=== PATIENT | female | born 1970 | race Caucasian/White ===

== ENCOUNTER 2017-02-12 17:04 | Emergency (ER) | payer BC, OTHER ==
--- NOTE | 2017-02-12 17:15 | UC ---
Ear Complaint HPI - HPI Summary HPI Summary: 46 year old presents with left ear pain. - History of Current Complaint Chief Complaint: UCEar Stated Complaint: LEFT EAR PAIN Time Seen by Provider: 02/12/17 17:13 Hx Last Menstrual Period: 10/18/15 has mirena - Allergies/Home Medications Allergies/Adverse Reactions: Allergies Allergy/AdvReac Type Severity Reaction Status Date / Time No Known Allergies Allergy Verified 02/12/17 17:11 Home Medications: Home Medications Fingolimod HCl [Gilenya] 0.5 mg PO DAILY 02/12/17 [History Confirmed 02/12/17] PMH/Surg Hx/FS Hx/Imm Hx - Surgical History Surgical History: Yes Surgery Procedure, Year, and Place: tonsillectomy - Family History Known Family History: Positive: None - Social History Alcohol Use: None Substance Use Type: None Smoking Status (MU): Never Smoked Tobacco - Immunization History Most Recent Influenza Vaccination: none Review of Systems Constitutional: Negative Skin: Negative Eyes: Negative ENT: Ear Ache Respiratory: Negative Cardiovascular: Negative Gastrointestinal: Negative Genitourinary: Negative Motor: Negative Neurovascular: Negative Musculoskeletal: Negative Neurological: Negative Psychological: Negative All Other Systems Reviewed And Are Negative: Yes Physical Exam Triage Information Reviewed: Yes Eye Exam: Normal ENT: Positive: Other: - left external ear erythema Dental Exam: Normal Neck exam: Normal Neck: Positive: 1 Respiratory Exam: Normal Cardiovascular Exam: Normal Abdominal Exam: Normal Musculoskeletal Exam: Normal Neurological Exam: Normal Psychological Exam: Normal Skin Exam: Normal Ear Complaint Course/Dx - Differential Dx/Diagnosis Provider Diagnoses: left ear otitis externa Discharge - Discharge Plan Condition: Stable Disposition: HOME Prescriptions: Neomyc/Polym/HC 1% OTIC SUSP* [Cortisporin Otic Susp 1%*] 4 drop LEFT EAR QID # 1 btl Patient Education Materials: Earache (ED), Otitis Externa (ED) Referrals: Chidi Hugo DO [Primary Care Provider] -
[2017-02-12 17:16] VITALS: BP 120/84
== END 2017-02-12 17:28 | disposition home or self-care (01) ==
LOC: UCCORT 17:04
DX: H60.92 Unspecified otitis externa, left ear (principal)
CPT/HCPCS: 99212; G0463

== ENCOUNTER 2017-02-15 09:07 | Emergency (ER) | payer BC ==
[2017-02-15 09:16] VITALS: BP 120/85
--- NOTE | 2017-02-15 09:20 | UC ---
Ear Complaint HPI - HPI Summary HPI Summary: 46 YEAR OLD FEMALE PRESENTS AGAIN FOR LEFT EAR PAIN. - History of Current Complaint Stated Complaint: LEFT EAR COMPLAINT Time Seen by Provider: 02/15/17 09:14 Hx Last Menstrual Period: 10/18/15 has mirena - Allergies/Home Medications Allergies/Adverse Reactions: Allergies Allergy/AdvReac Type Severity Reaction Status Date / Time No Known Allergies Allergy Verified 02/15/17 09:16 PMH/Surg Hx/FS Hx/Imm Hx - Surgical History Surgical History: Yes Surgery Procedure, Year, and Place: tonsillectomy - Family History Known Family History: Positive: None - Social History Alcohol Use: None Substance Use Type: None Smoking Status (MU): Never Smoked Tobacco - Immunization History Most Recent Influenza Vaccination: none Most Recent Tetanus Shot: unk Most Recent Pneumonia Vaccination: none Review of Systems Constitutional: Negative Skin: Negative Eyes: Negative ENT: Ear Ache Respiratory: Negative Cardiovascular: Negative Gastrointestinal: Negative Genitourinary: Negative Motor: Negative Neurovascular: Negative Musculoskeletal: Negative Neurological: Negative Psychological: Negative All Other Systems Reviewed And Are Negative: Yes Physical Exam Triage Information Reviewed: Yes Eye Exam: Normal ENT: Positive: Other: - LEFT EAR CERUMEN IMPACTION LEFT OTITIS EXTERNA Dental Exam: Normal Neck exam: Normal Neck: Positive: 1 Respiratory Exam: Normal Cardiovascular Exam: Normal Abdominal Exam: Normal Musculoskeletal Exam: Normal Neurological Exam: Normal Psychological Exam: Normal Skin Exam: Normal Ear Complaint Course/Dx - Differential Dx/Diagnosis Provider Diagnoses: LEFT EAR CERUMEN IMPACTION. LEFT EAR OTITIS EXTERNA Discharge - Discharge Plan Condition: Stable Disposition: HOME Prescriptions: Amoxicillin/Clavulanate TAB* [Augmentin TAB 875*] 875 mg PO BID #20 tab Patient Education Materials: Earache (ED), Cerumen Impaction (ED) Referrals: Chidi Hugo DO [Primary Care Provider] -
== END 2017-02-15 09:32 | disposition home or self-care (01) ==
LOC: UCCORT 09:07
DX: H61.22 Impacted cerumen, left ear (principal); H60.92 Unspecified otitis externa, left ear
CPT/HCPCS: 99213; G0463

== ENCOUNTER 2017-09-15 19:39 | Emergency (ER) | payer BC ==
[2017-09-15 21:01] VITALS: BP 133/79
--- NOTE | 2017-09-15 22:11 | UC ---
Throat Pain/Nasal Edgar HPI - HPI Summary HPI Summary: PT IS C/O PAIN IN R EAR WITH CRACKLING FOR 2 DAYS. SHE DENIES FEVER, URI OR DISCHARGE. SHE HAD AN EAR INFECTION ONCE THAT FELT THE SAME. - History of Current Complaint Chief Complaint: UCEar Stated Complaint: EAR PAIN Time Seen by Provider: 09/15/17 21:56 Hx Obtained From: Patient Hx Last Menstrual Period: 09/12/17 ?: No Onset/Duration: Gradual Onset Pain Intensity: 2 Associated Signs & Symptoms: Positive: Negative - Epiglottits Risk Factors Epiglottis Risk Factors: Negative - Allergies/Home Medications Allergies/Adverse Reactions: Allergies Allergy/AdvReac Type Severity Reaction Status Date / Time No Known Allergies Allergy Verified 09/15/17 21:01 Home Medications: Home Medications Ibuprofen 600 mg PO ONCE 09/15/17 [History Confirmed 09/15/17] Multivit with Calcium,Iron,Min [Multiple Vitamins For Women] 1 each PO DAILY 05/23 [History Confirmed 09/15/17] PMH/Surg Hx/FS Hx/Imm Hx Previously Healthy: No - MS and per triage note - Surgical History Surgical History: Yes Surgery Procedure, Year, and Place: tonsillectomy - Family History Known Family History: Positive: None - Social History Lives: With Family Alcohol Use: None Substance Use Type: None Smoking Status (MU): Never Smoked Tobacco - Immunization History Most Recent Influenza Vaccination: none Most Recent Tetanus Shot: unk Most Recent Pneumonia Vaccination: none Review of Systems Constitutional: Negative Skin: Negative Eyes: Negative ENT: Ear Ache Respiratory: Negative Cardiovascular: Negative Gastrointestinal: Negative Genitourinary: Negative Neurological: Other - chronic neuromuscular deficits from MS but no acute changes All Other Systems Reviewed And Are Negative: Yes Physical Exam Triage Information Reviewed: Yes Appearance: Well-Appearing Vital Signs: Initial Vital Signs Temp 98.2 F 09/15/17 20:56 Pulse 66 09/15/17 20:56 Resp 16 09/15/17 20:56 BP 133/79 09/15/17 20:56 Pulse Ox 100 09/15/17 20:56 Vital Signs Reviewed: Yes Eye Exam: Normal ENT: Positive: Hearing grossly normal, Pharynx normal, TMs normal, Other - Pain with R auricle tug and pressure to tragus. Canal with scant white flakes. No mastoid tenderness.. Negative: Nasal congestion, Nasal drainage Neck: Positive: Supple, Nontender, No Lymphadenopathy Respiratory: Positive: Chest non-tender, Lungs clear, Normal breath sounds Cardiovascular: Positive: RRR, No Murmur Abdomen Description: Positive: Nontender, No Organomegaly, Soft Bowel Sounds: Positive: Present Neurological: Positive: Alert Psychological Exam: Normal Skin Exam: Normal Throat Pain/Nasal Course/Dx - Course Course Of Treatment: no matoiditis or OM. Will tx for OE and refer to ENT since this is a recurrent issue and pt c/o crackles in R ear. - Differential Dx/Diagnosis Provider Diagnoses: R otitis externa Discharge - Discharge Plan Condition: Stable Disposition: HOME Discharge Disposition Comment: PLACE 4 DROPS OF CORTISPORIN ANTIBIOTIC IN r EAR THREE TIMES DAILY FOR 7 DA Patient Education Materials: Otitis Externa (ED) Referrals: Robert Alvares MD [Medical Doctor] - 5 Days
[2017-09-15] MEDS ORDERED: Neomyc/Polym/HC 1% OTIC SUSP* **OTIC ONE (22:14)
[2017-09-16] MEDS ORDERED: Neomyc/Polym/HC 1% OTIC SUSP* **OTIC RIGHT EAR SCH (09:00)
== END 2017-09-15 22:20 | disposition home or self-care (01) ==
LOC: UCCORT 19:39
DX: H60.91 Unspecified otitis externa, right ear (principal)
CPT/HCPCS: 99212; A9270-GY; G0463

== ENCOUNTER 2019-07-29 08:24 | Emergency (ER) | payer BC ==
--- OUTSIDE RECORDS SUMMARY | 2019-07-29 08:32 | XMS REPORT | Summary of Care ---
:1970 Author Organization [facility] Address [address] [place] [address] Care Team Providers Name Role Phone Pcp, No Primary Care Provider Unavailable Reason for Visit Reason Comments Follow-up Encounter Details Date Type Department Care Team Description 06/05/2019 Office Visit [facility] Neurology at Levi Gregory, Multiple sclerosis (Primary Dx); [facility] MS (multiple sclerosis) Center [address], [address] [id number] [place] [address] Allergies No Known Allergiesdocumented as of this encounter (statuses as of 06/06/2019) Medications Medication Sig Dispensed Refills Start End Date Status Date Cholecalciferol Take 5,000 0 Active (VITAMIN D PO) Units by mouth daily Multiple Vitamin Take 1 tablet 0 Active (MULTIVITAMIN) by mouth tablet daily. ibuprofen Take 600 mg by 0 Active (ADVIL,MOTRIN) 200 mouth every 6 MG tablet (six) hours as needed for Pain. Misc. Devices Use as directed. Wheelchair 1 each 0 Active (DURABLE MEDICAL Reason: gait disorder from multiple sclerosis 8 EQUIPMENT SEE SIG) MISCIndications: Multiple sclerosis Fingolimod HCl Take 1 capsule 90 capsule 1 07/06/20 Active (GILENYA) 0.5 MG by mouth daily 9 19 CAPSIndications: Multiple sclerosis gabapentin Take 300 mg by 0 Active (NEURONTIN) 300 MG mouth Three capsule times daily dalfampridine Take 1 tablet 180 tablet 3 06/04/20 Active (AMPYRA) 10 MG by mouth every 9 20 extended release 12 (twelve) tabletIndications: hours MS (multiple sclerosis) dalfampridine Take 1 tablet 180 tablet 3 06/05/20 Discontinued (AMPYRA) 10 MG by mouth every 9 19 (Reorder) extended release 12 (twelve) tabletIndications: hours MS (multiple sclerosis) documented as of this encounter (statuses as of 06/06/2019) Active Problems Problem Noted Date Advanced maternal age in 11/11/2012 Multiple sclerosis 10/17/2012 Overview: Relapsing remitting MS dx'd 03/16 documented as of this encounter (statuses as of 06/06/2019) Social History Tobacco Use Types Packs/Day Years Used Date Never Smoker 0 Smokeless Tobacco: Never Used Alcohol Use Drinks/Week oz/Week Comments No Sex Assigned at Date Recorded Not on file Job Start Date Occupation Industry Not on file Not on file Not on file Travel History Travel Start Travel End No recent travel history available. documented as of this encounter Last Filed Vital Signs Vital Sign Reading Time Taken Comments Blood Pressure 118/85 06/05/2019 9:50 AM EDT Pulse 76 06/05/2019 9:50 AM EDT Temperature - - Respiratory Rate - - Oxygen Saturation - - Inhaled Oxygen Concentration - - Weight 71.7 kg (158 lb) 06/05/2019 9:50 AM EDT Height 172.7 cm (5' 8") 06/05/2019 9:50 AM EDT Body Mass Index 24.02 06/05/2019 9:50 AM EDT documented in this encounter Progress Notes Levi Gregory MD - 06/05/2019 10:00 AM EDT Neuro[facility]Ophthalmology Clinic Interim History: Danyelle Ashby is a 49 y.o. female who returned for routine neuro-ophthalmic follow up appointment of relapsing - remitting multiple sclerosis, accompanied by cousin. Since the last visit on 11/19/2018, she has been medically well and not been hospitalized. The labs obtained at the last visit were most notable for JCV 0.88 , vitamin D 60, lymphocyte 0.60 and WBC 6.2.The last MRI of the Brain performed on 04/22/19 showed no new lesions or abnormal enhancement. I have reviewed it and agree with the report. She has tolerated Gilenya and Ampyra very well without significant side effects. She has remained adherent to therapy. She reports no new symptoms . At the last visit, she had noted that Ampyra generic helped her gait, but clearly the brand name was better, although she couldn't afford the copayment. She was going to inquire for patient assistance program but that wasn't helpful. She now feels that Ampyra generic is helping better. She recently hurt her back, so she has not been able to use the stationary bike for exercise. She developed right ear ache. Urinary (dificulty emptying) and bowel movement (constipation)difficulties have remained stable. She continues using a cane and walker for long distances for support. She was in [place] recently, and did very well despite high temperatures. She required a scooter. Review of Systems: Besides the above mentioned symptoms, a complete review of systems was obtained and filed in the chart. All other systems were otherwise negative. Medication List: Outpatient Medications Marked as Taking for the 06/05/19 encounter (Office Visit ) with Levi Gregory MD Medication Sig Dispense Refill Extra Info Cholecalciferol (VITAMIN D PO) Take 5,000 Units by mouth daily 1 dalfampridine (AMPYRA) 10 MG extended release tablet Take 1 tablet by mouth every 12 (twelve)hours 180 tablet 3 1 Fingolimod HCl (GILENYA) 0.5 MG CAPS Take 1 capsule by mouth daily 90 capsule 1 1 gabapentin (NEURONTIN) 300 MG capsule Take 300 mg by mouth Three times daily 1 ibuprofen (ADVIL,MOTRIN) 200 MG tablet Take 600 mg by mouth every 6 (six ) hours as needed forPain. 1 Misc. Devices (DURABLE MEDICAL EQUIPMENT SEE SIG) MISC Use as directed. Wheelchair Reason: gait disorder from multiple sclerosis 1 each 0 1 Multiple Vitamin (MULTIVITAMIN) tablet Take 1 tablet by mouth daily. 1 Examination: On examination, she was well-groomed, good general health, pleasant and in no acute distress. Visit Vitals BP 118/85 Pulse 76 Ht 1.727 m (5' 8") Wt 71.7 kg (158 lb) LMP 05/08/2019 BMI 24.02 kg/m Mental status: The patient was awake, alert, oriented to time, place, and person. Recent andremote memory is intact to conversation. There was no evidence of language dysfunction. The patient had appropriate attention, concentration, fund of knowledge. Cranial Nerves: Eye Movements:The extraocular movements were full with smooth pursuit and normal saccades. There wasa slight right DAMARIS. She had a spontaneous right head tilt. Facial sensation and strength were symmetric. Palate and uvula elevated midline, sternocleidomastoid strength was full, the tongue was midline with no atrophy or fasciculations. Motor: Full power in the upper and lower extremities proximal and distally with no evidence of pronator drift. Tone was slightly increased in the right upper more so than lower. Reflexes: normoto hyperactiveactive and symmetric. Coordination: [id number], bilateral, mild degree. Heel to rae nearly normal. Gait: The patient had aslight wide base and spastic quality, slight left hemiparetic.The 25 foot walk was performed in8.8seconds. Assessment: Danyelle Ashby is a 49 y.o. female who is here for routine follow up appointment of relapsing - remitting multiple sclerosis. Since the last visit, she has had a stable course. Plan: Danyelle Ashby will continue Gilenya and Ampyra. She will have laboratory tests including JCV and CBC. She will return to clinic in 6 months. In the meantime, she will call with any question or problem.Thank you for allowing us to participate in the care of this pleasant patient. If you have any questions, please do not hesitate to call our office. documented in this encounter Plan of Treatment Date Type Specialty Care Team Description 11/06/2019 Office Visit Neurology Levi Gregory MD [address] [place] [address] [phone] Name Type Priority Associated Diagnoses Date/Time Stratify JCV (TM) AB with Lab Routine Multiple sclerosis 06/05/2019 11:20 AM EDT Index Name Type Priority Associated Diagnoses Order Schedule Stratify JCV (TM) AB Lab Routine Multiple sclerosis 1 Occurrences starting with Index 06/05/2019 until 12/04/2019 Health Maintenance Due Date Last Done Comments MMR Vaccines (1 of 1 - Standard 1971 series) DTaP,Tdap,and Td Vaccines (1 - 1977 Tdap) HIV Screening 1983 Varicella Vaccines (1 of 2 - 13+ 1983 2-dose series) Cervical Cancer Screening 5 years 1991 Influenza Vaccine 05/06/2019 Pneumococcal Vaccine: 65+ Years (1 2035 of 2 - PCV13) HIB Vaccines Aged Out No longer eligible based on patient's age to complete this topic Hepatitis A Vaccines Aged Out No longer eligible based on patient's age to complete this topic Hepatitis B Vaccines Aged Out No longer eligible based on patient's age to complete this topic IPV Vaccines Aged Out No longer eligible based on patient's age to complete this topic Pneumococcal Vaccine: Pediatrics Aged Out No longer eligible based on (0 to 5 Years) and At-Risk patient's age to complete this Patients (6 to 64 Years) topic documented as of this encounter Procedures Procedure Name Priority Date/Time Associated Comments Diagnosis CBC AND DIFFERENTIAL Routine 06/05/2019 11:20 Multiple sclerosis Results for this AM EDT procedure are in the results section. documented in this encounter Results CBC and differential (06/05/2019 11:20 AM EDT) White Blood Cell 6.0 4 - 10 [facility] 10*3/uL [facility] Red Blood Cell 4.60 4.1 - 5.3 [facility] 10*6/uL [facility] Hemoglobin 15.3 11.5 - 15.5 [facility] g/dL [facility] Hematocrit 46.5 (H) 36 - 45 % [facility] Mean Cell Volume 101.0 (H) 80 - 96 fL [facility] Mean Cell Hemoglobin 33.2 (H) 27 - 33 pg [facility] Mean Cell Hgb Conc 32.9 32.0 - 36.0 [facility] g/dL [facility] Red Cell Dist Width 13.4 11.5 - 14.5 % [facility] Platelet Count 256 150 - 400 [facility] 10*3/uL [facility] Differential Type Automated Diff [facility] Neutrophil 71 % [facility] Lymphocyte 11 % [facility] Monocyte 16 % [facility] Eosinophil 2 % [facility] Basophil 0 % [facility] Abs Neutrophil 4.29 1.8 - 7.0 [facility] 10*3/uL [facility] Abs Lymphocyte 0.66 (L) 1.2 - 4.0 [facility] 10*3/uL [facility] Abs Monocyte 0.95 (H) 0 - 0.8 [facility] 10*3/uL [facility] Abs Eosinophil 0.09 0 - 0.5 [facility] 10*3/uL [facility] Abs Basophil 0.02 0 - 0.2 [facility] 10*3/uL [facility] Nucleated Red Blood 0 0 - 0 [facility] Cells /100{WBCs} [facility] Specimen EDTA Whole Blood Performing Organization Address City/State/Zipcode Phone Number [facility] [address] [place] [address] [phone] [facility] [address] [place] [address] Pathology documented in this encounter Visit Diagnoses Diagnosis Multiple sclerosis - Primary MS (multiple sclerosis) Multiple sclerosis documented in this encounter
[2019-07-29 08:36] VITALS: BP 109/62
--- NOTE | 2019-07-29 08:49 | UC ---
Ear Complaint HPI - HPI Summary HPI Summary: right ear pain x 1 day pain is 9 out of 10 , sharp / shooting worse at night , nothing makes it better or worse denies any cold symptoms, no fever, no chills , no change in hearing - History of Current Complaint Chief Complaint: UCEar Stated Complaint: EAR COMPLAINT Time Seen by Provider: 07/29/19 08:32 Hx Obtained From: Patient Hx Last Menstrual Period: 07/08/19 ?: No Onset/Duration: Gradual Onset, Lasting Days - 1, Still Present Severity Initially: Severe Severity Currently: Severe Pain Intensity: 9 Aggravating Factors: Nothing Alleviating Factors: Nothing Associated Signs/Symptoms: Negative: Discharge, Hearing Loss, Foreign Body Sensation, Trauma to Ear, Swelling @, URI Symptoms - Allergies/Home Medications Allergies/Adverse Reactions: Allergies Allergy/AdvReac Type Severity Reaction Status Date / Time No Known Allergies Allergy Verified 07/29/19 08:36 Home Medications: Home Medications Dalfampridine [Ampyra] 10 mg PO BID 07/29/19 [History Confirmed 07/29/19] Gabapentin CAP(*) [Neurontin 300 CAP(*)] 300 mg PO TID 07/29/19 [History Confirmed 07/29/19] PMH/Surg Hx/FS Hx/Imm Hx - Additional Past Medical History Additional PMH: MS - Surgical History Surgical History: Yes Surgery Procedure, Year, and Place: tonsillectomy - Family History Known Family History: Positive: None Negative: Diabetes - Social History Alcohol Use: None Substance Use Type: None Smoking Status (MU): Never Smoked Tobacco - Immunization History Most Recent Influenza Vaccination: none Most Recent Tetanus Shot: unk Most Recent Pneumonia Vaccination: none Review of Systems All Other Systems Reviewed And Are Negative: Yes ENT: Positive: Ear Ache Is Patient Immunocompromised?: No Physical Exam Triage Information Reviewed: Yes Appearance: Well-Nourished, Ill-Appearing, Pain Distress Vital Signs: Initial Vital Signs Temp 98.4 F 07/29/19 08:33 Pulse 88 07/29/19 08:33 Resp 14 07/29/19 08:33 BP 109/62 07/29/19 08:33 Pulse Ox 98 07/29/19 08:33 Vital Signs Reviewed: Yes Eye Exam: Normal Eyes: Positive: Conjunctiva Clear ENT: Positive: Normal ENT inspection, Hearing grossly normal, Pharynx normal, TMs normal. Negative: Nasal congestion, Nasal drainage, TM bulging, TM dull, TM red, Tonsillar swelling, Tonsillar exudate Neck: Positive: Supple, Nontender, No Lymphadenopathy Respiratory: Positive: Chest non-tender, Lungs clear, Normal breath sounds Cardiovascular: Positive: RRR, No Murmur, Pulses Normal Skin Exam: Normal Ear Complaint Course/Dx - Differential Dx/Diagnosis Provider Diagnosis: Otalgia, right ear Discharge ED - Sign-Out/Discharge Documenting (check all that apply): Patient Departure All imaging exams completed and their final reports reviewed: No Studies - Discharge Plan Condition: Stable Disposition: HOME Patient Education Materials: Earache (ED) Referrals: No Primary Care Phys,NOPCP [Primary Care Provider] - 7 Days Additional Instructions: no ear infection noted , no need for antibiotics cont. with your current meds, may try Ibuprofen as needed for pain follow up with your pcp in one week if not better - Billing Disposition and Condition Condition: STABLE Disposition: Home
== END 2019-07-29 08:51 | disposition home or self-care (01) ==
LOC: UCCORT 08:24
DX: H92.01 Otalgia, right ear (principal)
CPT/HCPCS: 99211; G0463